=== PATIENT | female | born 2000 | race Caucasian/White ===

== ENCOUNTER 2021-01-04 14:15 | Emergency (ER) | payer OTHER ==
[~2021-01-04] VITALS: Ht 162.6 cm; Wt 97.5 kg
[2021-01-04 14:24] VITALS: BP 119/92
[2021-01-04] MEDS ORDERED: IBUPROFEN 600 MG TABLET ONE (14:58)
[2021-01-04] MEDS ORDERED: diphenhydrAMINE HCL 25 MG CAPSULE ONE (14:58)
[2021-01-04] MEDS: IBUPROFEN 600 MG TABLET PO ONE (15:01)
[2021-01-04] MEDS: DIPHENHYDRAMINE HCL 12.5 MG/5 ML UDC PO ONE (15:01)
--- NOTE | 2021-01-04 15:01 | NUR ---
Patient discharged to home in stable condition. Written and verbal after care instructions given. Patient verbalizes understanding of instruction.
== END 2021-01-04 15:02 | disposition home or self-care (01) ==
LOC: ER 14:23
DX: R22.0 Localized swelling, mass and lump, head (principal); T50.B95A Adverse effect of other viral vaccines, initial encounter; Y92.89 Other specified places as the place of occurrence of the external cause
CPT/HCPCS: 99283; Q0163